=== PATIENT | female | born 1970 | race Two or more races ===

== ENCOUNTER 2021-10-25 08:54 | Emergency (ER) | payer OTHER ==
[~2021-10-25] VITALS: Ht 157.5 cm; Wt 66.0 kg
[2021-10-25] MEDS ORDERED: KETOROLAC 60MG/2ML VIAL IM ONE (09:15)
[2021-10-25] MEDS ORDERED: ONDANSETRON 4MG ODT PO ONE (10:15)
[2021-10-25] MEDS ORDERED: MORPHINE SULFATE 10 MG/ML CPJ IM ONE (10:15)
[2021-10-25] MEDS ORDERED: CYCL10TA7 MT (10:59)
[2021-10-25] MEDS ORDERED: IBUP-2028 MT (10:59)
[2021-10-25 11:21] VITALS: BP 136/68
== END 2021-10-25 11:23 | disposition home or self-care (01) ==
LOC: ER 08:54
DX: G58.9 Mononeuropathy, unspecified (principal); M25.511 Pain in right shoulder; F12.10 Cannabis abuse, uncomplicated; F17.200 Nicotine dependence, unspecified, uncomplicated; Z98.890 Other specified postprocedural states
CPT/HCPCS: 71045; 73030; 96372; 99284; J1885; J2270; Q0162; A4565